=== PATIENT | female | born 1945 | race Caucasian/White ===

== ENCOUNTER 2016-12-01 14:32 | Emergency (ER) | payer MEDICARE ==
[2016-12-01 14:40] VITALS: BP 148/85; PULSE 90; RESP 18; TEMP 98.5; O2SAT 100; BMI 21.9
--- NOTE | 2016-12-01 16:13 | ED PDOC ---
Arrival/HPI - General Chief Complaint: Lower Extremity Problem/Injury Time Seen by Provider: 12/01/16 15:03 Historian: Patient - History of Present Illness Narrative History of Present Illness (Text): 12/01/16 16:19 Patient reports injuring both of her knees and her left ankle when she tripped and fell going up the stairs. Otherwise: (-) "pop", (-) instability, (-) other injury. Has no history of prior knee injury. Past Medical History - Provider Review Nursing Documentation Reviewed: Yes - Reproductive Menopause: Yes - Cardiac Hx Hypertension: Yes - Pulmonary Hx Respiratory Disorders: No - Neurological Hx Neurological Disorder: No - HEENT Hx HEENT Disorder: No - Renal Hx Renal Disorder: No - Endocrine/Metabolic Hx Endocrine Disorders: No - Hematological/Oncological Hx Blood Disorders: No - Integumentary Hx Dermatological Disorder: No - Musculoskeletal/Rheumatological Hx Musculoskeletal Disorders: No - Gastrointestinal Hx Gastrointestinal Disorders: No - Genitourinary/Gynecological Hx Genitourinary Disorders: No - Psychiatric Hx Psychophysiologic Disorder: No Hx Substance Use: No Family/Social History - Physician Review Nursing Documentation Reviewed: Yes Family/Social History: No Known Family HX Smoking Status: Never Smoked Hx Alcohol Use: No Hx Substance Use: No Allergies/Home Meds Allergies/Adverse Reactions: Allergies No Known Allergies Allergy (Verified 12/01/16 14:40) Home Medications: Home Meds Medication Instructions Recorded Confirmed Atorvastatin [Lipitor] 10 mg PO DAILY 12/01/16 12/01/16 amLODIPine [Norvasc] 5 mg PO DAILY 12/01/16 12/01/16 Review of Systems - Review of Systems Constitutional: Normal. absent: Fatigue, Weight Change, Fevers Musculoskeletal: Normal, Arthralgias. absent: Back Pain, Neck Pain Skin: Normal. absent: Rash, Pruritis, Skin Lesions Physical Exam - Physical Exam Narrative Physical Exam (Text): 12/01/16 16:21 GENERAL APPEARANCE: Patient is awake, alert, oriented x 3, in mild painful distress. SKIN: Warm, dry; (-) cyanosis, (+) multiple abrasions to the knees and ankles. LOWER EXTREMITY: Mild tenderness of b/l knees with no effusion. Able to extend actively to 0 degrees; (-) instability on valgus or varus stress. Drawer sign (-). (-) distal neurovascular deficit. 2 point discrimination. Hips, thighs, legs and ankles: (-) tenderness or limitation of motion. Vital Signs Temp Pulse Resp BP Pulse Ox 12/01/16 14:35 98.5 F 90 18 148/85 100 Medical Decision Making ED Course and Treatment: 12/01/16 16:07 71 yo F s/p trip and fall c/o b/l knee and L ankle pain. XRs ordered, tylenol po given. Wounds cleaned and dressed. Patient refused tetanus vaccination. XR b/l knee: no fracture, no dislocation, as read by PA XR L ankle: no fracture, no dislocation, as read by PA Patient advised that official radiology read of XR is still pending and will call the patient if there is any discrepancy within 24 hours. X-ray results discussed with the patient in great detail. Based on history, exam and diagnostic results plan will be for outpatient follow-up with PMD. Patient states she fully agrees with and understands discharge instructions. States that she agrees with the plan and disposition. Verbalized and repeated discharge instructions and plan. I have given the patient opportunity to ask any additional questions. Follow up with primary care physician in 1-2 days without fail. Return to the emergency room at any time for any new or worsening symptoms. - RAD Interpretation Radiology Orders: 12/01/16 15:13 KNEES BILATERAL [RAD] Stat 12/01/16 15:34 ANKLE LEFT 3 VIEWS ROUTINE [RAD] Stat - Medication Orders Current Medication Orders: Discontinued Medications Acetaminophen (Tylenol 325mg Tab) 975 mg PO STAT STA Stop: 12/01/16 15:14 Last Admin: 12/01/16 15:40 Dose: 975 mg - PA / OXYACETYLENE WELDER / Resident Statement MD/DO has reviewed & agrees with the documentation as recorded. Disposition/Present on Arrival - Present on Arrival Any Indicators Present on Arrival: No History of DVT/PE: No History of Uncontrolled Diabetes: No Urinary Catheter: No History of Decub. Ulcer: No History Surgical Site Infection Following: None - Disposition Have Diagnosis and Disposition been Completed?: Yes Diagnosis: Knee contusion, Ankle sprain Disposition: HOME/ ROUTINE Disposition Time: 16:13 Patient Plan: Discharge Condition: GOOD Discharge Instructions (ExitCare): Ankle Sprain (ED), Contusion in Adults (ED) Print Language: [place] Additional Instructions: Thank you for letting us take care of you today. You were treated for knee contusion, ankle sprain. The emergency medical care you received today was directed at your acute symptoms. Return to the Emergency Department if your symptoms worsen, do not improve, or if you have any other problems. Please contact your doctor in 2 days for re-evaluation and follow up. Bring any paperwork you were given at discharge with you along with any medications you are taking to your follow up visit. Our treatment cannot replace ongoing medical care by a primary care provider (PCP) outside of the emergency department. Thank you for allowing the [facility] team to be part of your care today. Referrals: Paula Vasquez MD [Primary Care Provider] - Follow up with primary
--- NOTE | 2016-12-01 18:02 | RAD ---
HISTORY: pain COMPARISON: No prior FINDINGS: BONES: Normal. No fracture. JOINTS: Normal. No osteoarthritis. SOFT TISSUE: Normal. OTHER FINDINGS: None . IMPRESSION: Normal Bone Xray.
--- NOTE | 2016-12-01 18:03 | RAD ---
HISTORY: pain COMPARISON: No prior FINDINGS: BONES: Normal. No fracture. JOINTS: Normal. No osteoarthritis. SOFT TISSUE: Normal. OTHER FINDINGS: None . IMPRESSION: Normal Bone Xray.
== END 2016-12-01 16:23 | disposition home or self-care (01) ==
LOC: ED 14:32
DX: S80.02XA Contusion of left knee, initial encounter (principal); S80.01XA Contusion of right knee, initial encounter; S93.402A Sprain of unspecified ligament of left ankle, initial encounter; W01.0XXA Fall on same level from slipping, tripping and stumbling without subsequent striking against object, initial encounter; Y92.89 Other specified places as the place of occurrence of the external cause

== ENCOUNTER 2017-03-23 17:19 | Emergency (ER) | payer MEDICARE ==
[2017-03-23 17:19] VITALS: BMI 21.9
[2017-03-23 17:29] VITALS: TEMP 98.3
--- NOTE | 2017-03-23 17:44 | ED PDOC ---
"Arrival/HPI - General Chief Complaint: Female Genitourinary Time Seen by Provider: 03/23/17 17:39 Historian: Patient - History of Present Illness Narrative History of Present Illness (Text): 03/23/17 17:40 71 y/o female, pmh including htn/hyperlipidemia, nkda, c/o couple episodes of hematuria started last night with no fall or trauma. Pt. is not on any blood thinners or anticoagulant, coincentally also has lt.lower back pain which she had this pain before, no numbness or tingling, no flank pain, no nausea or vomiting, no fever or chills, no night sweat, no rash, no other medical or psychological complaints. Past Medical History - Provider Review Nursing Documentation Reviewed: Yes - Infectious Disease Hx of Infectious Diseases: None - Reproductive Menopause: Yes - Cardiac Hx Hypertension: Yes - Pulmonary Hx Respiratory Disorders: No - Neurological Hx Neurological Disorder: No - HEENT Hx HEENT Disorder: No - Renal Hx Renal Disorder: No - Endocrine/Metabolic Hx Endocrine Disorders: No - Hematological/Oncological Hx Blood Disorders: No - Integumentary Hx Dermatological Disorder: No - Musculoskeletal/Rheumatological Hx Musculoskeletal Disorders: No - Gastrointestinal Hx Gastrointestinal Disorders: No - Genitourinary/Gynecological Hx Genitourinary Disorders: No - Psychiatric Hx Psychophysiologic Disorder: No Hx Substance Use: No - Anesthesia Hx Anesthesia: No Hx Anesthesia Reactions: No Hx Malignant Hyperthermia: No Family/Social History - Physician Review Nursing Documentation Reviewed: Yes Family/Social History: Unknown Family HX Smoking Status: Never Smoked Hx Alcohol Use: No Hx Substance Use: No Allergies/Home Meds Allergies/Adverse Reactions: Allergies No Known Allergies Allergy (Verified 03/23/17 17:29) Home Medications: Home Meds Medication Instructions Recorded Confirmed Atorvastatin [Lipitor] 10 mg PO DAILY 12/01/16 03/23/17 amLODIPine [Norvasc] 5 mg PO DAILY 12/01/16 03/23/17 Review of Systems - Review of Systems Constitutional: absent: Fatigue, Fevers Eyes: absent: Vision Changes ENT: absent: Hearing Changes Respiratory: absent: SOB, Cough Cardiovascular: absent: Chest Pain Gastrointestinal: absent: Abdominal Pain, Nausea, Vomiting Genitourinary Female: Dysuria, Hematuria. absent: Frequency, Urine Output Changes, Vaginal Bleeding, Vaginal Discharge Musculoskeletal: Back Pain. absent: Arthralgias, Neck Pain, Joint Swelling, Myalgias Skin: absent: Rash, Pruritis, Skin Lesions Physical Exam Vital Signs Reviewed: Yes Vital Signs Temp Pulse Resp BP Pulse Ox 03/23/17 20:51 86 19 142/81 100 03/23/17 17:23 98.3 F 107 H 20 153/83 H 98 Temperature: Afebrile Blood Pressure: Hypertensive Pulse: Tachycardic Respiratory Rate: Normal Appearance: Positive for: Well-Appearing, Non-Toxic, Comfortable Pain Distress: Mild Mental Status: Positive for: Alert and Oriented X 3 - Systems Exam Head: Present: Atraumatic, Normocephalic Pupils: Present: PERRL Extroacular Muscles: Present: EOMI Conjunctiva: Present: Normal Mouth: Present: Moist Mucous Membranes Neck: Present: Normal Range of Motion Respiratory/Chest: Present: Clear to Auscultation, Good Air Exchange. No: Respiratory Distress, Accessory Muscle Use Cardiovascular: Present: Regular Rate and Rhythm, Normal S1, S2. No: Murmurs Abdomen: Present: Normal Bowel Sounds. No: Tenderness, Distention, Peritoneal Signs, Rebound, Guarding Genitourinary/Pelvic Exam: Present: Other (Pt. deferred) Back: Present: Normal Inspection. No: CVA Tenderness, Midline Tenderness, Paraspinal Tenderness, Pain with Leg Raise, Decubitus Ulcer Upper Extremity: Present: Normal Inspection. No: Cyanosis, Edema Lower Extremity: Present: Normal Inspection. No: Edema Neurological: Present: GCS=15, Speech Normal, Motor Func Grossly Intact, Gait Normal, Memory Normal Skin: Present: Warm, Dry, Normal Color. No: Rashes Psychiatric: Present: Alert, Oriented x 3, Normal Insight, Normal Concentration Medical Decision Making ED Course and Treatment: 03/23/17 17:46 -labs/ua -observe and reassess 03/23/17 21:22 -Labs are non-significant -UA show no UTI but there is +hematuria -CT abdomen and pelvis show: show no acute findings -Pt. stated that she did remember that she wipe the vaginal area too hard and started to bleed on and off last night, no pain. Pt. refused pelvic and transvaginal/pelvic sonogram, stated that she will go see her own obgyn and pmd for follow up -Pt. wishes to be discharged home now. -Discharge home with education follow up with your own pmd and obgyn for outpatient transvaginal and pelvic sonogram for follow up within 2 days, return to the ER for any new or worsening signs or symptoms. - Lab Interpretations Lab Results: 03/23/17 18:10 03/23/17 18:10 Lab Results 03/23/17 18:30: Urine Color Light yellow, Urine Appearance Clear, Urine pH 6.5, Ur Specific [place] <= 1.005, Urine Protein Negative, Urine Glucose (UA) Negative, Urine Ketones Negative, Urine Blood Moderate H, Urine Nitrate Negative , Urine Bilirubin Negative, Urine Urobilinogen 0.2, Ur Leukocyte Esterase Negative, Urine RBC 5 - 10, Urine WBC 0 - 2, Ur Epithelial Cells 0 - 2, Urine Bacteria Mod 03/23/17 18:10: Sodium 144, Potassium 4.6, Chloride 101, Carbon Dioxide 30, Anion Gap 18, BUN 14, Creatinine 0.7, Est GFR ( Amer) > 60, Est GFR (Non- Af Amer) > 60, Random Glucose 127 H, Calcium 10.7 H, Total Bilirubin 0.4, AST 29 , ALT 31, Alkaline Phosphatase 108, Total Protein 7.6, Albumin 4.8, Globulin 2.8 , Albumin/Globulin Ratio 1.7 03/23/17 18:10: PT 11.2, INR 1.04, APTT 27.7 03/23/17 18:10: WBC 8.4, RBC 4.73, Hgb 14.8, Hct 43.9, MCV 92.8, MCH 31.3, MCHC 33.7, RDW 12.5, Plt Count 355, MPV 9.5, Gran % 62.2, Lymph % (Auto) 27.5, Bibb % (Auto) 7.3 H, Eos % (Auto) 2.5, Baso % (Auto) 0.5, Gran # 5.23, Lymph # 2.3, Bibb # 0.6, Eos # 0.2, Baso # 0.04 I have reviewed the lab results: Yes Interpretation: Abnormal lab values (+hematuria) - RAD Interpretation Radiology Orders: 03/23/17 19:26 ABDOMEN & PELVIS [ABD & PELVIS W/O PO OR IV CONT] [CT] Stat ABDOMEN: LIVER: No acute abnormality of the liver identified. GALLBLADDER AND BILE DUCTS: No CT evidence of acute cholecystitis. No evidence of significant biliary ductal dilatation. PANCREAS: No CT evidence of acute pancreatitis. SPLEEN: No acute abnormality of the spleen identified. ADRENALS: No acute abnormality of the adrenal glands identified. KIDNEYS AND URETERS:No acute abnormality of the kidneys seen. No renal stones, hydronephrosis, or hydroureter seen. STOMACH AND BOWEL: Scattered colonic diverticulosis, without evidence of diverticulitis. Otherwise, no significant abnormality of the bowel is identified. No evidence of bowel obstruction. APPENDIX: Appendix is seen, and is within normal limits in appearance. LINETTE HENDRIXSMITA | Final Radiology Report CONFIDENTIALITY STATEMENT This report is intended only for use by the referring physician, and only in accordance with law. If you received this in error, call [phone]. Page 2 of 2 PELVIS: BLADDER: No acute abnormality of the bladder identified. REPRODUCTIVE: No acute abnormality of the reproductive organs is seen. ABDOMEN and PELVIS: INTRAPERITONEAL SPACE: No evidence of free intraperitoneal air or fluid. BONES/JOINTS: No acute fractures or other acute bony abnormality noted. SOFT TISSUES: No acute abnormality of the visualized soft tissues is seen. VASCULATURE: Atherosclerotic calcification. No evidence of abdominal aortic aneurysm. LYMPH NODES: No evidence of diffuse lymphadenopathy. IMPRESSION: - No evidence of significant acute process on this unenhanced exam. There is no evidence of nephrolithiasis or obstructive uropathy. - See above for remaining findings. Thank you for allowing us to participate in the care of your patient. Dictated and Authenticated by: Ignacia Millan MD 03/23/2017 8:56 PM Eastern Time ([place] & [place]) - PA / [employer] / Resident Statement / has reviewed & agrees with the documentation as recorded. Disposition/Present on Arrival - Present on Arrival Any Indicators Present on Arrival: No History of DVT/PE: No History of Uncontrolled Diabetes: No Urinary Catheter: No History of Decub. Ulcer: No History Surgical Site Infection Following: None - Disposition Have Diagnosis and Disposition been Completed?: Yes Diagnosis: Hematuria, Vaginal spotting Disposition: HOME/ ROUTINE Disposition Time: 19:38 Patient Plan: Discharge Patient Problems: Current Active Problems Problem Status Onset Hematuria Acute Condition: IMPROVED Additional Instructions: Discharge home with education follow up with your own pmd and obgyn for outpatient transvaginal and pelvic sonogram for follow up within 2 days, return to the ER for any new or worsening signs or symptoms. Referrals: Paula Vasquez MD [Primary Care Provider] - Follow up with primary Glenroy Rosen [Medical Doctor] - Follow up with primary Forms: [facility] [facility] (Thai), WORK NOTE"
[2017-03-23 18:17] LABS: BASO # 0.04 K/mm3 (0.0-2.0); BASO % 0.5 % (0.0-3.0); EOS # 0.2 (0.0-0.7); EOS % 2.5 % (1.5-5.0); GRAN # 5.23 (1.4-6.5); GRAN % 62.2 % (50.0-68.0); HEMATOCRIT 43.9 % (36.0-48.0); LYMPH # 2.3 (1.2-3.4); LYMPH % 27.5 % (22.0-35.0); MEAN CELL VOLUME 92.8 fl (80.0-105.0); MEAN CORPUSCULAR HEMOGLOBIN 31.3 pg (25.0-35.0); MEAN CORPUSCULAR HGB CONC 33.7 g/dl (31.0-37.0); MEAN PLATELET VOLUME 9.5 fl (7.0-11.0); MONO # 0.6 (0.1-0.6); MONO % 7.3 % (1.0-6.0); RED CELL DISTRIBUTION WIDTH 12.5 % (11.5-14.5); WHITE BLOOD COUNT 8.4 10^3/ul (4.5-11.0)
[2017-03-23 18:29] LABS: INR 1.04 (0.93-1.08); PARTIAL THROMBOPLASTIN TIME 27.7 Seconds (23.7-30.8)
[2017-03-23 18:30] LABS: ALB/GLOB RATIO 1.7 (1.1-1.8); ALKALINE PHOSPHATASE 108 U/L (38-133); ALT/SGPT 31 U/L (7-56); AST/SGOT 29 U/L (15-39); BILIRUBIN,TOTAL 0.4 mg/dL (0.2-1.3); BLOOD UREA NITROGEN 14 mg/dL (7-21); CALCIUM 10.7 mg/dL (8.4-10.5); CARBON DIOXIDE 30 mmol/L (21-33); CHLORIDE 101 mmol/L (98-107); GFR AFRICAN-AMERICAN > 60; GLUCOSE,RANDOM 127 mg/dL (70-110); POTASSIUM 4.6 mmol/L (3.6-5.0); SODIUM 144 mmol/L (132-148); TOTAL PROTEIN 7.6 g/dL (5.8-8.3)
[2017-03-23 19:24] LABS: PH,URINE 6.5 (4.7-8.0); URINE APPEARANCE CLEAR (CLEAR); URINE BILIRUBIN NEGATIVE (NEGATIVE); URINE BLOOD MODERATE (NEGATIVE); URINE COLOR LIGHT YELLOW (YELLOW); URINE GLUCOSE (UA) NEGATIVE (NEGATIVE); URINE KETONE NEGATIVE (NEGATIVE); URINE LEUKOCYTE ESTERASE NEGATIVE Leu/uL (NEGATIVE); URINE PROTEIN NEGATIVE mg/dL (<30 mg/dL); URINE UROBILINOGEN 0.2 E.U./dL (<1 E.U./dL)
[2017-03-23 19:32] LABS: URINE BACTERIA MOD (NEG); URINE EPITHELIAL CELLS 0 - 2 /hpf (0-5); URINE WBC 0 - 2 /hpf (0-6)
[2017-03-23 20:54] VITALS: BP 142/81; PULSE 86; RESP 19; O2SAT 100
--- NOTE | 2017-03-23 20:57 | CT ---
EXAM: CT Abdomen and Pelvis Without Intravenous Contrast EXAM DATE/TIME: 03/23/2017 7:26 PM CLINICAL HISTORY: 71 years old, female; Signs and symptoms; Other: Hemauria; Additional info: Lt. Sided back pain, hematuria TECHNIQUE: Axial computed tomography images of the abdomen and pelvis without intravenous contrast. All CT scans at this facility use one or more dose reduction techniques, viz.: automated exposure control; ma/kV adjustment per patient size (including targeted exams where dose is matched to indication; i.e. head); or iterative reconstruction technique. Coronal and sagittal reformatted images were created and reviewed. COMPARISON: No relevant prior studies available. FINDINGS: LOWER THORAX: Small hiatal hernia. ABDOMEN: LIVER: No acute abnormality of the liver identified. GALLBLADDER AND BILE DUCTS: No CT evidence of acute cholecystitis. No evidence of significant biliary ductal dilatation. PANCREAS: No CT evidence of acute pancreatitis. SPLEEN: No acute abnormality of the spleen identified. ADRENALS: No acute abnormality of the adrenal glands identified. KIDNEYS AND URETERS:No acute abnormality of the kidneys seen. No renal stones, hydronephrosis, or hydroureter seen. STOMACH AND BOWEL: Scattered colonic diverticulosis, without evidence of diverticulitis. Otherwise, no significant abnormality of the bowel is identified. No evidence of bowel obstruction. APPENDIX: Appendix is seen, and is within normal limits in appearance. PELVIS: BLADDER: No acute abnormality of the bladder identified. REPRODUCTIVE: No acute abnormality of the reproductive organs is seen. ABDOMEN and PELVIS: INTRAPERITONEAL SPACE: No evidence of free intraperitoneal air or fluid. BONES/JOINTS: No acute fractures or other acute bony abnormality noted. SOFT TISSUES: No acute abnormality of the visualized soft tissues is seen. VASCULATURE: Atherosclerotic calcification. No evidence of abdominal aortic aneurysm. LYMPH NODES: No evidence of diffuse lymphadenopathy. IMPRESSION: - No evidence of significant acute process on this unenhanced exam. There is no evidence of nephrolithiasis or obstructive uropathy. - See above for remaining findings.
== END 2017-03-23 21:25 | disposition home or self-care (01) ==
LOC: ED 17:19
DX: R31.9 Hematuria, unspecified (principal); N93.9 Abnormal uterine and vaginal bleeding, unspecified; I10 Essential (primary) hypertension; E78.5 Hyperlipidemia, unspecified